=== PATIENT | male | born 1955 | race Caucasian/White ===

== ENCOUNTER 2022-06-06 10:46 | Emergency (ER) | payer MEDICAID ==
[~2022-06-06] VITALS: Ht 180.3 cm; Wt 116.4 kg
[2022-06-06 11:46] VITALS: BP 160/84
[2022-06-06] MEDS ORDERED: GUAI400T92 PO (13:56)
[2022-06-06] MEDS ORDERED: BENZ-38 PO (13:56)
== END 2022-06-06 14:56 | disposition home or self-care (01) ==
LOC: ER 10:48
DX: J20.9 Acute bronchitis, unspecified (principal); R09.81 Nasal congestion; J44.9 Chronic obstructive pulmonary disease, unspecified; K21.9 Gastro-esophageal reflux disease without esophagitis; E11.9 Type 2 diabetes mellitus without complications; Z88.0 Allergy status to penicillin
CPT/HCPCS: 71046; 99283